=== PATIENT | female | born 1960 | race Caucasian/White ===

== ENCOUNTER 2017-01-08 17:50 | Outpatient (CLI) | payer BC ==
--- OUTSIDE RECORDS SUMMARY | 2017-01-08 17:53 | XMS | Clinical Summary ---
:1960 Author Organization [facility] Address [address] [place] [address] Phone Care Team Providers Name Role Phone , Primary Care Provider Unavailable Allergies Not on File Current Medications Not on file Active Problems Not on file Social History Tobacco Use Types Packs/Day Years Used Date Never Assessed Sex Assigned at Date Recorded Not on file Last Filed Vital Signs Not on file Plan of Treatment Not on file Results Not on filefrom Last 3 Months
== END 2017-01-08 17:51 | disposition home or self-care (01) ==
LOC: SCSULT 17:50 → ULT 17:51
PROVIDERS: ATTEND Family Medicine
DX: M79.89 Other specified soft tissue disorders (principal)

== ENCOUNTER 2017-01-08 18:01 | Emergency (ER) | payer BC ==
--- OUTSIDE RECORDS SUMMARY | 2017-01-08 18:05 | XMS | Clinical Summary ---
:1960 Author Organization [facility] Address [address] [place] [address] Phone Care Team Providers Name Role Phone [...]
--- NOTE | 2017-01-08 22:10 | ULT ---
RIGHT LOWER EXTREMITY VENOUS DOPPLER WITH SPECTRAL ANALYSIS AND COLOR FLOW EVALUATION 01/08/17 HISTORY: Right leg pain and swelling with onset for a couple of months with symptoms gradually worsening. FINDINGS: Eid scale, color flow, doppler evaluation, with spectral analysis of the right lower extremity veno us structures is performed with 2D imaging. The right lower extremity common femoral, superficial femoral, popliteal, posterior tibial, most pro ximal greater saphenous and profunda femoral veins are imaged. There is normal lumen compressibility, flow, and augmentation in the visualized deep venous structur es of the right lower extremity. IMPRESSION: No evidence of a DVT involving the visualized deep venous structures right lower extremity. POS: KRYSTAL
== END 2017-01-08 20:10 | disposition home or self-care (01) ==
LOC: ERS 18:01
DX: M79.89 Other specified soft tissue disorders (principal); I48.91 Unspecified atrial fibrillation; E11.9 Type 2 diabetes mellitus without complications; I10 Essential (primary) hypertension; Z79.84 Long term (current) use of oral hypoglycemic drugs; Z79.899 Other long term (current) drug therapy

== ENCOUNTER 2017-11-11 15:49 | Outpatient (CLI) | payer BC ==
--- NOTE | 2017-11-11 18:06 | RAD ---
LEFT HIP TWO VIEWS: 11/11/17 HISTORY: Left hip pain. FINDINGS: Mild joint space narrowing. Mild to moderate osteophytosis and subchondral sclerosis. Femoral head co ntours maintained. No acute fracture, dislocation, or aggressive osseous erosions. IMPRESSION: Mild osteoarthritic changes left hip. POS: RONNA
== END 2017-11-11 15:50 | disposition home or self-care (01) ==
LOC: SCSRAD 15:49
PROVIDERS: ATTEND Family Medicine
DX: M25.552 Pain in left hip (principal); M16.12 Unilateral primary osteoarthritis, left hip

== ENCOUNTER 2017-12-04 15:16 | Outpatient (CLI) | payer BC ==
--- NOTE | 2017-12-04 16:07 | MMO ---
BILATERAL SCREENING MAMMOGRAM: Date: 12/04/17 HISTORY: 57-year-old female. Routine screening mammography. COMPARISON: 01/09/16, 04/29/14, 11/20/12. TECHNIQUE: CC and MLO views of both breasts are submitted for interpretation. This patient's mammogram was reviewed with the assistance of computer-aided detection. FINDINGS: The breasts are composed of scattered fibroglandular tissue. In the left breast, no suspicious dominant mass, architectural distortion, or suspicious calcificatio ns. There are benign-appearing calcifications. In the right breast, stable post biopsy change. No suspicious masses or suspicious calcifications. IMPRESSION: BIRADS 2: Benign Finding(s) RECOMMENDATION: Annual mammogram. POS: RONNA
== END 2017-12-04 15:17 | disposition home or self-care (01) ==
LOC: SCSMAMMO 15:16
PROVIDERS: ATTEND Family Medicine
DX: Z12.31 Encounter for screening mammogram for malignant neoplasm of breast (principal)
CPT/HCPCS: 77067

== ENCOUNTER 2019-06-30 08:19 | Outpatient (CLI) | payer BC ==
--- NOTE | 2019-06-30 08:56 | RAD ---
XR Chest Pa Lat @ POB HISTORY: Dyspnea COMPARISON: None. FINDINGS: Heart size and mediastinum are within normal limits. The lungs are clear of infiltrates. Th ere are arthritic changes of the spine. IMPRESSION: No active intrathoracic disease.
== END 2019-06-30 08:20 | disposition home or self-care (01) ==
LOC: RAD 08:19
PROVIDERS: ATTEND Internal Medicine Critical Care Medicine
DX: R06.00 Dyspnea, unspecified (principal)
CPT/HCPCS: 71046

== ENCOUNTER 2021-11-12 11:29 | Outpatient (CLI) | payer BC | END 2021-11-12 11:30 | disposition home or self-care (01) | LOC: BICULT 11:29 | PROVIDERS: ATTEND Family Medicine | DX: R10.13 Epigastric pain (principal); K76.0 Fatty (change of) liver, not elsewhere classified | CPT/HCPCS: 76705 ==

== ENCOUNTER 2023-06-09 13:18 | Day surgery (SDC) | payer BC ==
[2023-06-06 13:06] VITALS: BMI 40.3
[2023-06-06 13:25] LABS: Hematocrit 44.1 % (34.9-44.5); Hemoglobin 14.6 g/dL (12.0-15.5); Mean Corpuscular HGB CONC 33.1 g/dL (32.0-36.0); Mean Corpuscular Hemoglobin 28.6 pg (27.0-33.0); Mean Corpuscular Volume 86.3 fl (81.6-98.3); Mean Platelet Volume 11.4 fl (7.4-10.4); Platelet Count 406 10x3/uL (150-450); RBC Distribution Width 14.4 % (11.5-14.5); Red Blood Cell (RBC) Count 5.11 10x6/uL (3.90-5.03); White Blood Cell (WBC) Count 13.8 10x3/uL (3.5-10.5)
[2023-06-06 13:53] LABS: PTT 26.9 sec (22.0-33.0); Prothrombin Time 10.7 sec (9.5-12.1)
[2023-06-06 14:41] LABS: Anion Gap 17 mmol/L (10-20); BUN (Urea Nitrogen) 13 mg/dL (9.8-20.1); Calc. Creatinine Clearance 124 mL/min (70-130); Calcium 9.6 mg/dL (7.8-10.44); Carbon Dioxide 24 mmol/L (23-31); Chloride 103 mmol/L (98-107); Estimated GFR 79; Glucose 237 mg/dL (80-115); Sodium 140 mmol/L (136-145)
[~2023-06-09 13:18] MED LIST: Famotidine/PF 20 mg/2ml Vial ONE; Heparin 10,000 UNITS/ 10 ML VIAL ONE; Insulin Regular 300 UNITS/3 ML VIAL ONE; Isoproterenol 0.2 MG/1 ML AMP ONE; Lidocaine 1% (PF) 30 ML VIAL ONE; Phenylephrine 40 MG/NS 250 ML 250 ML ONE; fentaNYL 50 mcg/mL 1 mL Vial ONE
== END 2023-06-09 13:30 | disposition home or self-care (01) ==
LOC: SDC 13:18
PROVIDERS: ATTEND Internal Medicine Cardiovascular Disease
PROC: 02583ZZ Destruction of Conduction Mechanism, Percutaneous Approach (ICD-10-PCS; principal; 2023-06-09)
PROC: 4A027FZ Measurement of Cardiac Rhythm, Via Natural or Artificial Opening (ICD-10-PCS; principal; 2023-06-09)
DX: I47.10 Supraventricular tachycardia, unspecified (principal); I47.9 Paroxysmal tachycardia, unspecified; I25.10 Atherosclerotic heart disease of native coronary artery without angina pectoris; K21.9 Gastro-esophageal reflux disease without esophagitis; G47.33 Obstructive sleep apnea (adult) (pediatric); I10 Essential (primary) hypertension; E66.9 Obesity, unspecified; Z68.30 Body mass index [BMI] 30.0-30.9, adult; Z79.84 Long term (current) use of oral hypoglycemic drugs; Z79.82 Long term (current) use of aspirin; Z79.899 Other long term (current) drug therapy; Z88.8 Allergy status to other drugs, medicaments and biological substances; Z90.89 Acquired absence of other organs; Z90.710 Acquired absence of both cervix and uterus
CPT/HCPCS: 36416; 80048; 85027; 85610; 85730; 93005; 93623; 93653; C1730; C1732; C1760; C1894; J1644; J1815; J2001; J3010; S0028

== ENCOUNTER 2023-09-01 16:00 | Outpatient (CLI) | payer BC | END 2023-09-01 16:01 | disposition home or self-care (01) | LOC: SLEEPLAB 16:00 | PROVIDERS: ATTEND Family Medicine | DX: G47.33 Obstructive sleep apnea (adult) (pediatric) (principal); E11.9 Type 2 diabetes mellitus without complications; E66.9 Obesity, unspecified; R06.83 Snoring; R35.1 Nocturia; I10 Essential (primary) hypertension; G25.81 Restless legs syndrome; K21.9 Gastro-esophageal reflux disease without esophagitis; G45.9 Transient cerebral ischemic attack, unspecified; I47.10 Supraventricular tachycardia, unspecified; Z68.41 Body mass index [BMI] 40.0-44.9, adult | CPT/HCPCS: 95800 ==

== ENCOUNTER 2023-10-09 08:27 | Outpatient (CLI) | payer BC ==
[2023-10-09] MEDS ORDERED: Barium Sulfate 96% 176 GM BOT (xray ONLY) ONE (08:39)
[2023-10-09] MEDS ORDERED: E-Z-HD 98% W/W 340GM BOT (x-ray ONLY) ONE (08:39)
== END 2023-10-09 08:28 | disposition home or self-care (01) ==
LOC: RAD 08:27
PROVIDERS: ATTEND Physician Assistant Medical
DX: R13.10 Dysphagia, unspecified (principal); R11.2 Nausea with vomiting, unspecified; Z86.010 Personal history of colon polyps
CPT/HCPCS: 74220

== ENCOUNTER 2023-10-17 07:08 | Outpatient (CLI) | payer BC | END 2023-10-17 07:09 | disposition home or self-care (01) | LOC: NM 07:08 | PROVIDERS: ATTEND Physician Assistant Medical | DX: R11.2 Nausea with vomiting, unspecified (principal); R13.10 Dysphagia, unspecified; K30 Functional dyspepsia; Z86.010 Personal history of colon polyps | CPT/HCPCS: 78264; A9541 ==

== ENCOUNTER 2025-04-13 07:33 | Day surgery (SDC) | payer BC ==
[2025-04-12 16:22] VITALS: BMI 41.9
[2025-04-13] MEDS ORDERED: Lidocaine 1% (PF) 30 ML VIAL ONE (08:30)
[2025-04-13] MEDS ORDERED: PROPOFOL 40 ML ONE (08:30)
[2025-04-13 08:38] LABS: #Basophils 0.09 10x3/uL (0.0-0.2); #Eosinophils 0.28 10x3/uL (0.0-0.7); #Monocytes 1.04 10x3/uL (0.11-0.59); #Neutrophils 6.76 10x3/uL (1.40-6.50); %Basophils 0.8 % (0.0-1.0); %Eosinophils 2.5 % (0.0-10.0); %Lymphocytes 26.7 % (21.0-51.0); %Monocytes 9.3 % (0.0-10.0); %Neutrophils 60.3 % (42.0-75.0); Hematocrit 42.5 % (36.0-47.0); Hemoglobin 13.2 g/dL (12.0-16.0); Mean Corpuscular Hemoglobin 27.0 pg (27.0-31.0); Mean Corpuscular Volume 87.1 fL (78.0-98.0); Platelet Count 382 10x3/uL (130-400); Red Blood Cell (RBC) Count 4.88 mill/uL (4.20-5.40); White Blood Cell (WBC) Count 11.22 10x3/uL (4.8-10.8)
[2025-04-13 08:54] LABS: Anion Gap 15 mmol/L (10-20); BUN (Urea Nitrogen) 13 mg/dL (9.8-20.1); Calc. Creatinine Clearance 168 mL/min (70-130); Calcium 9.4 mg/dL (7.8-10.44); Carbon Dioxide 23 mmol/L (23-31); Chloride 107 mmol/L (98-107); Glucose 199 mg/dL (80-115); Potassium 4.5 mmol/L (3.5-5.1); Sodium 140 mmol/L (136-145)
[2025-04-13] MEDS ORDERED: Glycopyrrolate 0.2 MG/ML 5 ML SYRINGE ONE (09:40)
== END 2025-04-13 10:49 | disposition home or self-care (01) ==
LOC: SDC 07:33
PROVIDERS: ATTEND Internal Medicine Cardiovascular Disease
PROC: B24BZZ4 Ultrasonography of Heart with Aorta, Transesophageal (ICD-10-PCS; principal; 2025-04-13)
DX: I08.1 Rheumatic disorders of both mitral and tricuspid valves (principal); Z90.89 Acquired absence of other organs; Z90.710 Acquired absence of both cervix and uterus; Z98.890 Other specified postprocedural states; Z88.8 Allergy status to other drugs, medicaments and biological substances
CPT/HCPCS: 80048; 85025; 93005; 93010; 93312; J2003; J2250; J2704